=== PATIENT | male | born 1975 | race Caucasian/White ===

== ENCOUNTER 2017-10-23 14:05 | Emergency (ER) | payer BC, OTHER ==
[~2017-10-23] VITALS: Ht 177.8 cm; Wt 95.3 kg
[~2017-10-23 14:05] MED LIST: LANS30CA63 PO; TAM04C PO; ZOLP10TA6 PO
[2017-10-23] MEDS ORDERED: ONDANSETRON HCL 4 MG/2 ML VIAL IV ONE ×2 (17:30→21:30)
[2017-10-23] MEDS ORDERED: SODIUM CHLORIDE 0.9% 1,000 ML IV ONE (17:30)
[2017-10-23] MEDS ORDERED: SODIUM CHLORIDE 0.9% 500 ML IV ONE (17:30)
[2017-10-23] MEDS ORDERED: MORPHINE SULF INJ 2 MG/ML SYRINGE 1ML IV ONE ×2 (17:30→19:00)
[2017-10-23] MEDS ORDERED: TETANUS-DIPTH-ACEL PERTUSSIS 0.5ML SYRG IM ONE (17:30)
[2017-10-23] MEDS ORDERED: HYDROmorphone HCL 2 MG/ML VL IV ONE (21:30)
[2017-10-23] MEDS ORDERED: HYDROmorphone HCL 2 MG/ML VL IV PRN (23:45)
[2017-10-24 01:11] VITALS: BP 128/73
[2017-10-24] MEDS ORDERED: HYDROmorphone HCL 2 MG/ML VL IV ONE (01:30)
== END 2017-10-24 01:35 | disposition short-term general hospital (02) ==
LOC: ER 14:05
DX: S42.112A Displaced fracture of body of scapula, left shoulder, initial encounter for closed fracture (principal); S42.002A Fracture of unspecified part of left clavicle, initial encounter for closed fracture; S22.42XA Multiple fractures of ribs, left side, initial encounter for closed fracture; K21.9 Gastro-esophageal reflux disease without esophagitis; E78.5 Hyperlipidemia, unspecified; Z82.49 Family history of ischemic heart disease and other diseases of the circulatory system; Z23 Encounter for immunization; Z87.442 Personal history of urinary calculi; W01.0XXA Fall on same level from slipping, tripping and stumbling without subsequent striking against object, initial encounter; Y93.55 Activity, bike riding; Y92.89 Other specified places as the place of occurrence of the external cause; Y99.8 Other external cause status
CPT/HCPCS: 71101; 71250; 73020; 73200; 90471; 90715; 93005; 96361; 96374; 96375; 96376; 99291; J1170; J2270; J2405; J7030

== ENCOUNTER 2019-12-02 23:50 | Inpatient (IN) | payer BC ==
[~2019-12-02] VITALS: Ht 177.8 cm; Wt 94.0 kg
[~2019-12-02 23:50] MED LIST changes: +LANS30CA57 PO; -LANS30CA63 PO
[2019-12-03 01:20] LABS: Basophils # (auto) 0.1 uL; Basophils % (auto) 0.5 % (0.0-2.0); Eosinophils # (auto) 0.1 uL; Eosinophils % (auto) 0.8 % (0.0-7.0); Hematocrit 50.1 % (41.0-53.0); Hemoglobin 16.7 g/dL (13.5-17.5); Lymphocytes # (auto) 1.1 uL; Lymphocytes % (auto) 6.6 % (10.0-50.0); Mean Corpuscular Hgb Conc. 33.4 g/dL (32.0-36.0); Mean Corpuscular Volume 80.8 fL (80.0-100.0); Monocytes # (auto) 0.9 uL; Monocytes % (auto) 5.5 % (0.0-12.0); Neutrophils # (auto) 14.1 uL; Neutrophils % (auto) 86.6 % (37.0-80.0); Platelet Count (auto) 310 10^3/uL (140-450); Red Cell Distribution Width 14.7 % (11.8-14.3); White Blood Cell 16.3 10^3/uL (4.4-10.8)
[2019-12-03 01:21] LABS: Urine Bacteria NONE SEEN /hpf (None Seen); Urine Blood Negative /uL (Negative); Urine Mucus MODERATE (None Seen); Urine Specific Gravity 1.031 (1.001-1.035); Urine WBC 1 /hpf (0 - 3)
[2019-12-03 01:38] LABS: INR 1.05 (0.9-1.15); Partial Thromboplastin Time 24.2 sec (23.64-32.05)
[2019-12-03 01:40] LABS: Calcium 8.9 mg/dL (8.5-10.1); Magnesium 2.2 mg/dL (1.6-2.6); Potassium 4.2 mmol/L (3.5-5.1)
[2019-12-03 01:42] LABS: BUN/Creatinine Ratio 11.4
[2019-12-03 01:45] LABS: Bilirubin, Total 0.5 mg/dL (0.2-1.0); Total Protein 7.8 g/dL (6.4-8.2)
[2019-12-03] MEDS ORDERED: MORPHINE SULFATE 4 MG/ML SYR/VIAL IV ONE (02:15)
[2019-12-03] MEDS ORDERED: SODIUM CHLORIDE 0.9% 1,000 ML IV ONE (02:15)
[2019-12-03] MEDS ORDERED: ONDANSETRON HCL 4 MG/2 ML VIAL IV ONE (02:15)
[2019-12-03] MEDS ORDERED: metroNIDAZOLE 500MG/100ML 100 ML IV ONE (02:15)
[2019-12-03] MEDS ORDERED: ACETAMINOPHEN 325 MG TAB PO PRN (03:15)
[2019-12-03] MEDS ORDERED: ONDANSETRON HCL 4 MG/2 ML VIAL IV PRN (03:15)
[2019-12-03] MEDS: HYDROcodone-ACET 5/325MG TAB PO PRN ×3 (04:13→13:05)
[2019-12-03 04:34] VITALS: BP 137/94
[2019-12-03 05:29] VITALS: BP 137/94
[2019-12-03] MEDS: SODIUM CHLORIDE 0.9% 1,000 ML IV SCH ×3 (05:57→23:56)
[2019-12-03] MEDS: MORPHINE SULFATE 4 MG/ML SYR/VIAL IV PRN ×2 (05:58→09:39)
[2019-12-03] MEDS: metroNIDAZOLE 500MG/100ML 100 ML IV SCH ×4 (05:58→23:57)
[2019-12-03] MEDS ORDERED: DEXL30CA4 PO (06:34)
[2019-12-03] MEDS ORDERED: ESCI5TAB PO (06:34)
[2019-12-03 07:22] LABS: Eosinophils # (auto) 0.1 uL; Lymphocytes # (auto) 1.1 uL; Neutrophils # (auto) 10.9 uL; White Blood Cell 13.2 10^3/uL (4.4-10.8)
[2019-12-03 07:24] LABS: Basophils # (auto) 0.1 uL; Basophils % (auto) 0.4 % (0.0-2.0); Hematocrit 47.2 % (41.0-53.0); Hemoglobin 15.4 g/dL (13.5-17.5); Lymphocytes % (auto) 8.4 % (10.0-50.0); Mean Corpuscular Hemoglobin 26.5 pg (28.0-32.0); Mean Corpuscular Hgb Conc. 32.6 g/dL (32.0-36.0); Mean Corpuscular Volume 81.2 fL (80.0-100.0); Monocytes % (auto) 7.9 % (0.0-12.0); Neutrophils % (auto) 82.3 % (37.0-80.0); Platelet Count (auto) 258 10^3/uL (140-450); Red Blood Cells 5.81 10^6/uL (4.5-5.90); Red Cell Distribution Width 14.6 % (11.8-14.3)
[2019-12-03 07:44] LABS: Potassium 3.9 mmol/L (3.5-5.1)
[2019-12-03 07:47] LABS: BUN/Creatinine Ratio 13.7
[2019-12-03 09:00] VITALS: BP 145/81
[2019-12-03 13:00] VITALS: BP 156/76
[2019-12-03] MEDS: HYDROmorphone HCL 2 MG/ML VL IV PRN ×3 (14:29→23:56)
[2019-12-03] MEDS ORDERED: GOLYTELY 4L KIT PO ONE (16:00)
[2019-12-03 17:00] VITALS: BP 149/78
[2019-12-03] MEDS ORDERED: hydrALAZINE HCL 25 MG TAB PO PRN (22:15)
[2019-12-03 23:00] VITALS: BP 151/91
[2019-12-04 00:29] VITALS: BP 163/78
[2019-12-04] MEDS: HYDROmorphone HCL 2 MG/ML VL IV PRN ×4 (04:29→22:05)
[2019-12-04] MEDS: metroNIDAZOLE 500MG/100ML 100 ML IV SCH ×3 (05:47→18:17)
[2019-12-04 05:59] LABS: Eosinophils # (auto) 0.4 uL; Hemoglobin 14.8 g/dL (13.5-17.5); Lymphocytes # (auto) 1.3 uL; Mean Corpuscular Volume 81.1 fL (80.0-100.0); Neutrophils % (auto) 78.6 % (37.0-80.0); Nucleated Red Blood Cells % 0.1 %; Red Cell Distribution Width 14.7 % (11.8-14.3)
[2019-12-04 06:02] LABS: Basophils # (auto) 0.1 uL; Basophils % (auto) 0.4 % (0.0-2.0); Eosinophils % (auto) 3.3 % (0.0-7.0); Hematocrit 44.6 % (41.0-53.0); Lymphocytes % (auto) 9.9 % (10.0-50.0); Mean Corpuscular Hemoglobin 26.9 pg (28.0-32.0); Mean Corpuscular Hgb Conc. 33.1 g/dL (32.0-36.0); Monocytes % (auto) 7.8 % (0.0-12.0); Platelet Count (auto) 252 10^3/uL (140-450); White Blood Cell 12.7 10^3/uL (4.4-10.8)
[2019-12-04 06:27] LABS: Potassium 3.9 mmol/L (3.5-5.1)
[2019-12-04 06:32] LABS: Albumin 3.4 g/dL (3.4-5.0); BUN/Creatinine Ratio 6.7; Calcium 7.9 mg/dL (8.5-10.1)
[2019-12-04 06:35] LABS: Bilirubin, Total 0.5 mg/dL (0.2-1.0); Total Protein 6.8 g/dL (6.4-8.2)
[2019-12-04] MEDS: HYDROcodone-ACET 5/325MG TAB PO PRN (06:51)
[2019-12-04] MEDS ORDERED: SODIUM CHLORIDE LOCK 10 ML ONE (08:38)
[2019-12-04] MEDS ORDERED: diphenhdrAMINE HCL 50 MG/1 ML VL ONE (08:39)
[2019-12-04 08:40] VITALS: BP 151/95
[2019-12-04] MEDS: SODIUM CHLORIDE 0.9% 1,000 ML IV SCH ×2 (09:15→20:50)
[2019-12-04 12:47] VITALS: BP 132/74
[2019-12-04] MEDS: MIDAZOLAM HCL 5 MG/ML-1ML VIAL ONE ×2 (13:54→13:58)
[2019-12-04] MEDS: fentaNYL CITRATE 100 MCG/2 ML VL ONE ×2 (13:54→13:58)
[2019-12-04] MEDS ORDERED: fentaNYL CITRATE 100 MCG/2 ML VL ONE (14:00)
[2019-12-04] MEDS ORDERED: MIDAZOLAM HCL 5 MG/ML-1ML VIAL ONE (14:01)
[2019-12-04 17:16] VITALS: BP 159/79
[2019-12-05 00:09] VITALS: BP 134/64
[2019-12-05] MEDS ORDERED: TEMAZEPAM 15 MG CAP PO ONE (00:30)
[2019-12-05] MEDS: metroNIDAZOLE 500MG/100ML 100 ML IV SCH ×4 (00:34→17:37)
[2019-12-05] MEDS: HYDROmorphone HCL 2 MG/ML VL IV PRN ×5 (05:03→23:06)
[2019-12-05] MEDS: SODIUM CHLORIDE 0.9% 1,000 ML IV SCH ×2 (05:03→13:36)
[2019-12-05 05:45] VITALS: BP 113/64
[2019-12-05 06:13] LABS: Eosinophils # (auto) 0.6 uL; Mean Corpuscular Volume 81.3 fL (80.0-100.0)
[2019-12-05 06:16] LABS: Basophils # (auto) 0 uL; Basophils % (auto) 0.3 % (0.0-2.0); Eosinophils % (auto) 5.1 % (0.0-7.0); Hematocrit 45.2 % (41.0-53.0); Hemoglobin 14.8 g/dL (13.5-17.5); Lymphocytes % (auto) 8.6 % (10.0-50.0); Mean Corpuscular Hemoglobin 26.6 pg (28.0-32.0); Mean Corpuscular Hgb Conc. 32.7 g/dL (32.0-36.0); Monocytes # (auto) 0.9 uL; Monocytes % (auto) 7.5 % (0.0-12.0); Neutrophils # (auto) 9.3 uL; Neutrophils % (auto) 78.5 % (37.0-80.0); Nucleated Red Blood Cells % 0.1 %; Platelet Count (auto) 248 10^3/uL (140-450); Red Blood Cells 5.55 10^6/uL (4.5-5.90); Red Cell Distribution Width 14.8 % (11.8-14.3); White Blood Cell 11.8 10^3/uL (4.4-10.8)
[2019-12-05 06:37] LABS: BUN/Creatinine Ratio 4.4; Calcium 8.2 mg/dL (8.5-10.1)
[2019-12-05 09:00] VITALS: BP 121/57
[2019-12-05 13:00] VITALS: BP 133/80
[2019-12-05 17:00] VITALS: BP 130/77
[2019-12-05 21:52] VITALS: BP 131/85
[2019-12-06] MEDS: metroNIDAZOLE 500MG/100ML 100 ML IV SCH ×4 (00:34→17:36)
[2019-12-06] MEDS: SODIUM CHLORIDE 0.9% 1,000 ML IV SCH ×3 (02:43→23:00)
[2019-12-06] MEDS: HYDROmorphone HCL 2 MG/ML VL IV PRN ×4 (03:05→21:22)
[2019-12-06 05:00] VITALS: BP 120/72
[2019-12-06 05:58] LABS: Basophils # (auto) 0.1 uL; Eosinophils # (auto) 0.8 uL; Eosinophils % (auto) 9.4 % (0.0-7.0); Hematocrit 43.4 % (41.0-53.0); Hemoglobin 14.5 g/dL (13.5-17.5); Lymphocytes # (auto) 1.6 uL; Lymphocytes % (auto) 17.7 % (10.0-50.0); Mean Corpuscular Hemoglobin 27.3 pg (28.0-32.0); Mean Corpuscular Hgb Conc. 33.4 g/dL (32.0-36.0); Mean Corpuscular Volume 81.7 fL (80.0-100.0); Monocytes # (auto) 0.8 uL; Monocytes % (auto) 9.2 % (0.0-12.0); Neutrophils # (auto) 5.6 uL; Neutrophils % (auto) 62.7 % (37.0-80.0); Platelet Count (auto) 250 10^3/uL (140-450); Red Blood Cells 5.31 10^6/uL (4.5-5.90); Red Cell Distribution Width 14.5 % (11.8-14.3)
[2019-12-06 06:22] LABS: Calcium 7.8 mg/dL (8.5-10.1)
[2019-12-06 06:24] LABS: BUN/Creatinine Ratio 5.3
[2019-12-06 09:00] VITALS: BP 126/79
[2019-12-06] MEDS ORDERED: fentaNYL CITRATE 100 MCG/2 ML VL ONE (09:10)
[2019-12-06] MEDS ORDERED: MIDAZOLAM HCL 1MG/1ML-2 ML VIAL ONE (09:11)
[2019-12-06] MEDS ORDERED: PROPOFOL 10 MG/ML 20 ML IV ONE (09:34)
[2019-12-06] MEDS ORDERED: fentaNYL CITRATE 100 MCG/2 ML VL IV PRN (09:45)
[2019-12-06] MEDS ORDERED: ONDANSETRON HCL 4 MG/2 ML VIAL IV PRN (09:45)
[2019-12-06] MEDS ORDERED: hydrALAZINE HCL 20 MG/ML VL IV PRN (09:45)
[2019-12-06] MEDS ORDERED: ePHEDrine SULFATE 50 MG/ML AMP IV PRN (09:45)
[2019-12-06 13:00] VITALS: BP 148/99
[2019-12-06 13:44] LABS: INR 1.12 (0.9-1.15)
[2019-12-06] MEDS: HYDROcodone-ACET 5/325MG TAB PO PRN (16:05)
[2019-12-06 17:00] VITALS: BP 127/67
[2019-12-06] MEDS ORDERED: TEMAZEPAM 15 MG CAP PO ONE (21:15)
[2019-12-06 21:42] VITALS: BP 138/83
[2019-12-07] MEDS: metroNIDAZOLE 500MG/100ML 100 ML IV SCH ×5 (00:15→23:21)
[2019-12-07] MEDS: HYDROmorphone HCL 2 MG/ML VL IV PRN ×2 (01:18→23:21)
[2019-12-07 04:57] VITALS: BP 150/86
[2019-12-07 06:14] LABS: Calcium 7.9 mg/dL (8.5-10.1); Potassium 3.5 mmol/L (3.5-5.1)
[2019-12-07 06:17] LABS: BUN/Creatinine Ratio 9.2
[2019-12-07 06:25] LABS: Eosinophils # (auto) 0.6 uL; Hemoglobin 14.8 g/dL (13.5-17.5); Lymphocytes # (auto) 1.5 uL; Monocytes # (auto) 0.7 uL
[2019-12-07 06:26] LABS: Basophils # (auto) 0.1 uL; Basophils % (auto) 0.9 % (0.0-2.0); Eosinophils % (auto) 8.7 % (0.0-7.0); Hematocrit 44.5 % (41.0-53.0); Lymphocytes % (auto) 20.8 % (10.0-50.0); Mean Corpuscular Hemoglobin 26.9 pg (28.0-32.0); Mean Corpuscular Hgb Conc. 33.2 g/dL (32.0-36.0); Monocytes % (auto) 9.6 % (0.0-12.0); Neutrophils # (auto) 4.3 uL; Nucleated Red Blood Cells % 0.1 %; Platelet Count (auto) 287 10^3/uL (140-450); Red Cell Distribution Width 14.6 % (11.8-14.3); White Blood Cell 7.2 10^3/uL (4.4-10.8)
[2019-12-07] MEDS: SODIUM CHLORIDE 0.9% 1,000 ML IV SCH ×2 (06:27→17:15)
[2019-12-07 09:00] VITALS: BP 125/77
[2019-12-07] MEDS: HYDROcodone-ACET 5/325MG TAB PO PRN ×3 (10:20→18:28)
[2019-12-07 13:00] VITALS: BP 145/84
[2019-12-07 17:00] VITALS: BP 148/78
[2019-12-07 22:00] VITALS: BP 150/83
[2019-12-08] MEDS: SODIUM CHLORIDE 0.9% 1,000 ML IV SCH (03:32)
[2019-12-08] MEDS: HYDROcodone-ACET 5/325MG TAB PO PRN ×3 (04:27→13:35)
[2019-12-08 05:00] VITALS: BP 141/83
[2019-12-08] MEDS: metroNIDAZOLE 500MG/100ML 100 ML IV SCH ×2 (05:47→11:31)
[2019-12-08 06:23] LABS: Basophils # (auto) 0.1 uL; Basophils % (auto) 0.8 % (0.0-2.0); Eosinophils # (auto) 0.4 uL; Eosinophils % (auto) 5.4 % (0.0-7.0); Hematocrit 45.7 % (41.0-53.0); Hemoglobin 15.2 g/dL (13.5-17.5); Lymphocytes # (auto) 1.6 uL; Lymphocytes % (auto) 20.7 % (10.0-50.0); Mean Corpuscular Hemoglobin 27.3 pg (28.0-32.0); Mean Corpuscular Hgb Conc. 33.3 g/dL (32.0-36.0); Mean Corpuscular Volume 81.7 fL (80.0-100.0); Monocytes # (auto) 0.7 uL; Monocytes % (auto) 8.8 % (0.0-12.0); Neutrophils % (auto) 64.3 % (37.0-80.0); Nucleated Red Blood Cells % 0.1 %; Platelet Count (auto) 276 10^3/uL (140-450); Red Blood Cells 5.59 10^6/uL (4.5-5.90); Red Cell Distribution Width 14.7 % (11.8-14.3); White Blood Cell 7.8 10^3/uL (4.4-10.8)
[2019-12-08 06:37] LABS: Calcium 8.2 mg/dL (8.5-10.1); Potassium 3.8 mmol/L (3.5-5.1)
[2019-12-08 06:39] LABS: BUN/Creatinine Ratio 8.3
[2019-12-08 09:28] VITALS: BP 127/71
[2019-12-08 12:41] VITALS: BP 123/73
[2019-12-08] MEDS ORDERED: PANT40TA2 PO (14:14)
[2019-12-08] MEDS ORDERED: ESCI5TAB PO (14:14)
[2019-12-08] MEDS ORDERED: MET500T PO (14:14)
[2019-12-08] MEDS ORDERED: CIP500T PO (14:14)
[2019-12-08] MEDS ORDERED: ATOR20TA50 PO (14:14)
[2019-12-08 16:53] VITALS: BP 111/75
[2019-12-08 16:58] VITALS: BP 123/73
[2019-12-08] MEDS ORDERED: CALCTAB25 PO (17:05)
[2019-12-08] MEDS ORDERED: metroNIDAZOLE 500MG/100ML 100 ML IV SCH (22:00)
== END 2019-12-08 18:09 | disposition home or self-care (01) | DRG 393 ==
LOC: ER 23:55 → OVERFLOW 23:56 → WEST WING 12-03 04:23 → UNDODISIN 12-08 14:30
PROVIDERS: ADMIT Hospitalist; ATTEND Internal Medicine
PROC: 0DBE8ZX Excision of Large Intestine, Via Natural or Artificial Opening Endoscopic, Diagnostic (ICD-10-PCS; principal; 2019-12-04 13:51)
DX: K55.9 Vascular disorder of intestine, unspecified (principal); N17.0 Acute kidney failure with tubular necrosis; E87.1 Hypo-osmolality and hyponatremia; R65.10 Systemic inflammatory response syndrome (SIRS) of non-infectious origin without acute organ dysfunction; K21.9 Gastro-esophageal reflux disease without esophagitis; N18.9 Chronic kidney disease, unspecified; K63.9 Disease of intestine, unspecified; E83.51 Hypocalcemia; E78.5 Hyperlipidemia, unspecified; Z87.442 Personal history of urinary calculi; Z79.899 Other long term (current) drug therapy; Z82.49 Family history of ischemic heart disease and other diseases of the circulatory system; Z80.0 Family history of malignant neoplasm of digestive organs
CPT/HCPCS: 36415; 74176; 76705; 80048; 80053; 80061; 81001; 82150; 82270; 83036; 83690; 83735; 85025; 85610; 85730; G0378; J2250; J2405; J2704; J3490

== ENCOUNTER 2021-06-02 15:00 | Inpatient (IN) | payer BC ==
[~2021-06-02] VITALS: Ht 177.8 cm; Wt 133.8 kg
[2021-06-02] MEDS: SODIUM ZIRCONIUM CYCL 10 GM PAK PO SCH ×3 (06:00→22:00)
[~2021-06-02 15:00] MED LIST changes: +ATOR20TA50 PO; +CALCTAB25 PO; +CIP500T PO; +ESCI5TAB PO; -LANS30CA57 PO; +MET500T PO; +PANT40TA2 PO; -TAM04C PO; -ZOLP10TA6 PO
[2021-06-02] MEDS ORDERED: SODIUM CHLORIDE 0.9% 1,000 ML IV ONE ×2 (15:15)
[2021-06-02 16:06] LABS: Basophils # (auto) 0.1 10 ^3/uL (0-0.2); Basophils % (auto) 0.5 % (0.0-2.0); Eosinophils # (auto) 0 10 ^3/uL (0-0.8); Hemoglobin 12.8 g/dL (13.5-17.5); Lymphocytes # (auto) 0.6 10 ^3/uL (0.4-5.4); Lymphocytes % (auto) 3.1 % (10.0-50.0); Mean Corpuscular Hemoglobin 23.6 pg (28.0-32.0); Mean Corpuscular Hgb Conc. 29.7 g/dL (32.0-36.0); Mean Corpuscular Volume 79.4 fL (80.0-100.0); Monocytes # (auto) 1.5 10 ^3/uL (0-1.3); Monocytes % (auto) 7.9 % (0.0-12.0); Neutrophils # (auto) 16.4 10 ^3/uL (1.6-8.6); Neutrophils % (auto) 88.5 % (37.0-80.0); Nucleated Red Blood Cells % 0.2 %; Red Blood Cells 5.41 10^6/uL (4.5-5.90); White Blood Cell 18.6 10^3/uL (4.4-10.8)
[2021-06-02] MEDS ORDERED: IOHEXOL 350 MG/ML 100ML IJ ONE (16:14)
[2021-06-02] MEDS ORDERED: cefTRIAXone 1GM/50ML D5W 50 ML IV ONE (16:30)
[2021-06-02 16:33] LABS: Albumin 3.5 g/dL (3.4-5.0); Calcium 7.4 mg/dL (8.5-10.1)
[2021-06-02 16:50] LABS: BUN/Creatinine Ratio 5.5; Bilirubin, Total 0.5 mg/dL (0.2-1.0); Total Protein 6.9 g/dL (6.4-8.2)
[2021-06-02] MEDS ORDERED: ALBUTEROL SULF 2.5 MG/0.5ML(0.5%) NEB SOLN NEB ONE ×4 (17:00→23:15)
[2021-06-02] MEDS ORDERED: FUROSEMIDE 20 MG/2 ML VIAL IV ONE ×2 (17:00→20:15)
[2021-06-02] MEDS ORDERED: CALCIUM GLUC 1,000mg/50ml-NS 50 ML IV ONE ×4 (17:00→22:00)
[2021-06-02] MEDS ORDERED: DEXTROSE (50%) 50ML SYRG IV ONE ×3 (17:00→20:45)
[2021-06-02] MEDS ORDERED: SODIUM BICARBONATE 8.4% INJ 50ML SYRINGE IV ONE ×2 (17:00→20:45)
[2021-06-02] MEDS ORDERED: InsuLIN REG 1unit/0.01ml Soln (100units/ml) IV ONE ×3 (17:00→20:45)
[2021-06-02] MEDS ORDERED: SODIUM ZIRCONIUM CYCL 10 GM PAK PO ONE ×3 (17:00→20:45)
[2021-06-02] MEDS ORDERED: SODIUM BICARBONATE 50ML VIAL 150 ML in D5W 5% 1,000 ML IV ONE (17:30)
[2021-06-02] MEDS ORDERED: SODIUM BICARBONATE 8.4 % INJ 50ML VIAL IV ONE ×2 (17:30→18:00)
[2021-06-02] MEDS ORDERED: SODIUM BICARBONATE 8.4% INJ 50ML SYRINGE ONE (17:52)
[2021-06-02] MEDS ORDERED: ENOXAPARIN SOD 100 MG/1 ML SYRINGE SC ONE (18:00)
[2021-06-02] MEDS ORDERED: SODIUM BICARBONATE 50ML VIAL 50 ML in SOD CHL 0.45% 1,000 ML IV ONE (18:00)
[2021-06-02] MEDS ORDERED: FUROSEMIDE 40 MG/4 ML VIAL IV ONE ×3 (18:15→23:30)
[2021-06-02] MEDS ORDERED: CALCIUM CHL 100MG/ML 1,000 MG in D5W 5% 100 ML IV ONE ×3 (18:15→22:15)
[2021-06-02] MEDS ORDERED: SODIUM CHLORIDE 0.9% 2,000 ML IV ONE ×2 (18:15→19:15)
[2021-06-02 18:30] LABS: Urine Bacteria FEW /hpf (None Seen); Urine Blood Negative /uL (Negative); Urine Hyaline Cast MOD /lpf (0 - 2); Urine Mucus FEW (None Seen); Urine Specific Gravity 1.035 (1.001-1.035); Urine WBC 12 /hpf (0 - 3)
[2021-06-02] MEDS ORDERED: NITROGLYCERIN 0.4 MG SL TAB SL PRN ×2 (18:30→20:00)
[2021-06-02] MEDS ORDERED: MORPHINE SULFATE INJECTION 2 MG/ML SYRG IV PRN ×2 (18:30→20:00)
[2021-06-02] MEDS ORDERED: ATOR20TA50 PO (18:54)
[2021-06-02] MEDS ORDERED: DEXL60CA4 PO (18:54)
[2021-06-02] MEDS ORDERED: ZOLP10TA6 PO ×2 (18:54)
[2021-06-02] MEDS ORDERED: ESCI-28 PO ×2 (18:54→18:56)
[2021-06-02] MEDS ORDERED: SODIUM CHLORIDE 0.9% 1,000 ML IV SCH ×2 (19:15→20:00)
[2021-06-02] MEDS ORDERED: CEFEPIME 1 GM in SODIUM CHL 0.9% 50 ML IV ONE (19:45)
[2021-06-02] MEDS ORDERED: HYDROcodone-ACET 5/325MG TAB PO PRN (20:00)
[2021-06-02] MEDS ORDERED: DOCUSATE SOD 100 MG CAP PO PRN (20:00)
[2021-06-02] MEDS ORDERED: MORPHINE SULFATE 4 MG/ML SYR/VIAL IV PRN (20:00)
[2021-06-02] MEDS: LACTATED RINGER'S 1,000 ML IV ONE (20:00)
[2021-06-02] MEDS ORDERED: ALUM & MAG HYDROX-SIMETH LIQ(MAALOX) 30 ML PO ONE (20:00)
[2021-06-02] MEDS ORDERED: LORazepam 2MG/ML-1ML VIAL IV PRN (20:00)
[2021-06-02] MEDS ORDERED: PANTOPRAZOLE 40 MG/10 ML VIAL INJ IV ONE (20:00)
[2021-06-02 20:12] LABS: BUN/Creatinine Ratio 6.1
[2021-06-02] MEDS ORDERED: MAGNESIUM SULFATE 1GM/100ML 100 ML IV ONE (20:15)
[2021-06-02 20:20] LABS: Magnesium 2.2 mg/dL (1.6-2.6); Phosphorus 8.2 mg/dL (2.5-4.90)
[2021-06-02 20:22] LABS: Potassium 6.3 mmol/L (3.5-5.1)
[2021-06-02 20:30] LABS: Free T4 (Free Thyroxine) 0.81 ng/dL (0.89-1.76)
[2021-06-02 20:31] LABS: Free T3 2.77 pg/mL (2.3-4.2)
[2021-06-02] MEDS ORDERED: CALCIUM ACETATE 667 MG CAP PO ONE (20:45)
[2021-06-02] MEDS ORDERED: SEVELAMER 800 MG TAB PO ONE (20:45)
[2021-06-02] MEDS ORDERED: FERROUS SULFATE 325mg EC TAB PO ONE (21:00)
[2021-06-02] MEDS ORDERED: CHOLECALCIFEROL (VITD3) 2,000 UNIT CAP/TAB PO ONE (21:00)
[2021-06-02] MEDS ORDERED: DEXTROSE (50%) 50ML SYRG IV PRN (21:00)
[2021-06-02] MEDS ORDERED: SODIUM ZIRCONIUM CYCL 10 GM PAK PO SCH ×2 (22:00)
[2021-06-02] MEDS: CEFEPIME 1 GM in SODIUM CHL 0.9% 50 ML IV SCH (22:00)
[2021-06-02 22:41] LABS: INR 1.64 (0.9-1.15); Partial Thromboplastin Time 24.9 sec (23.6-33.0); Potassium 6.3 mmol/L (3.5-5.1)
[2021-06-02] MEDS ORDERED: metroNIDAZOLE 500MG/100ML 100 ML IV ONE (23:15)
[2021-06-02] MEDS: SODIUM CHLORIDE 0.9% 1,000 ML IV SCH (23:30)
[2021-06-02 23:43] LABS: Sodium Urine 36 mmol/L (40-220)
[2021-06-02 23:53] LABS: Amphetamine Screen, Urine NEGATIVE (NEGATIVE); Barbiturate Scree,Urine NEGATIVE (NEGATIVE); Benzodiazephine Screen, Urine NEGATIVE (NEGATIVE); Cannabinoid Screen, Urine NEGATIVE (NEGATIVE); Cocaine Screen, Urine NEGATIVE (NEGATIVE); Opiate Scree,Urine POSITIVE (NEGATIVE); Phencyclidine Screen, Urine NEGATIVE (NEGATIVE)
[2021-06-03 02:09] LABS: Eosinophils # (auto) 0 10 ^3/uL (0-0.8); Lymphocytes # (auto) 0.3 10 ^3/uL (0.4-5.4); Monocytes # (auto) 0.7 10 ^3/uL (0-1.3); Red Cell Distribution Width 16.6 % (11.8-14.3)
[2021-06-03 02:10] LABS: Basophils # (auto) 0 10 ^3/uL (0-0.2); Basophils % (auto) 0.2 % (0.0-2.0); Eosinophils % (auto) 0.2 % (0.0-7.0); Hematocrit 36.3 % (41.0-53.0); Hemoglobin 11.3 g/dL (13.5-17.5); Lymphocytes % (auto) 2.2 % (10.0-50.0); Mean Corpuscular Volume 77.4 fL (80.0-100.0); Monocytes % (auto) 5.3 % (0.0-12.0); Neutrophils # (auto) 12.8 10 ^3/uL (1.6-8.6); Neutrophils % (auto) 92.1 % (37.0-80.0); Nucleated Red Blood Cells % 0.4 %; Red Blood Cells 4.69 10^6/uL (4.5-5.90); White Blood Cell 13.9 10^3/uL (4.4-10.8)
[2021-06-03] MEDS: InsuLIN REG 1unit/0.01ml Soln (100units/ml) SC SCH ×4 (02:16→16:43)
[2021-06-03] MEDS: ACCU-CHEK COMFORT CURVE STRIP VI SCH ×4 (02:17→16:43)
[2021-06-03 02:38] LABS: BUN/Creatinine Ratio 7.5; Potassium 5.1 mmol/L (3.5-5.1)
[2021-06-03 02:39] LABS: Albumin 2.6 g/dL (3.4-5.0); Calcium 6.7 mg/dL (8.5-10.1); Magnesium 2.3 mg/dL (1.6-2.6)
[2021-06-03 02:48] LABS: Bilirubin, Total 0.5 mg/dL (0.2-1.0); Phosphorus 4.4 mg/dL (2.5-4.90); Total Protein 5.5 g/dL (6.4-8.2)
[2021-06-03] MEDS: metroNIDAZOLE 500MG/100ML 100 ML IV SCH ×3 (06:00→21:38)
[2021-06-03] MEDS: SODIUM ZIRCONIUM CYCL 10 GM PAK PO SCH ×2 (06:26→14:24)
[2021-06-03] MEDS: CEFEPIME 1 GM in SODIUM CHL 0.9% 50 ML IV SCH (06:28)
[2021-06-03] MEDS ORDERED: CALCIUM ACETATE 667 MG CAP PO SCH (08:00)
[2021-06-03] MEDS: SEVELAMER 800 MG TAB PO SCH ×3 (08:34→16:43)
[2021-06-03] MEDS: CALCIUM W/VIT D (600MG/400IU) TAB PO SCH ×2 (08:34→16:43)
[2021-06-03] MEDS: FERROUS SULFATE 325mg EC TAB PO SCH ×3 (08:34→16:43)
[2021-06-03] MEDS: SODIUM CHLORIDE 0.9% 1,000 ML IV SCH ×3 (09:59→21:00)
[2021-06-03] MEDS: PANTOPRAZOLE 40 MG/10 ML VIAL INJ IV SCH ×2 (10:00→21:38)
[2021-06-03] MEDS ORDERED: ENOXAPARIN SOD 40 MG/0.4 ML SYRINGE SC SCH (10:00)
[2021-06-03] MEDS: ASPirin 81 mg TAB PO SCH (10:00)
[2021-06-03] MEDS: CHOLECALCIFEROL (VITD3) 2,000 UNIT CAP/TAB PO SCH (10:00)
[2021-06-03 10:38] LABS: Basophils # (auto) 0 10 ^3/uL (0-0.2); Basophils % (auto) 0.1 % (0.0-2.0); Eosinophils # (auto) 0 10 ^3/uL (0-0.8); Lymphocytes # (auto) 0.4 10 ^3/uL (0.4-5.4); Mean Corpuscular Volume 75.5 fL (80.0-100.0); Monocytes # (auto) 0.6 10 ^3/uL (0-1.3); Nucleated Red Blood Cells % 0.2 %
[2021-06-03 10:41] LABS: Hematocrit 35.1 % (41.0-53.0); Hemoglobin 11.1 g/dL (13.5-17.5); Mean Corpuscular Hemoglobin 23.9 pg (28.0-32.0); Mean Corpuscular Hgb Conc. 31.6 g/dL (32.0-36.0); Monocytes % (auto) 4.5 % (0.0-12.0); Neutrophils # (auto) 11.4 10 ^3/uL (1.6-8.6); Neutrophils % (auto) 92.4 % (37.0-80.0); Red Blood Cells 4.65 10^6/uL (4.5-5.90); Red Cell Distribution Width 16.5 % (11.8-14.3); White Blood Cell 12.4 10^3/uL (4.4-10.8)
[2021-06-03 10:53] LABS: Calcium 7.7 mg/dL (8.5-10.1); Potassium 4.2 mmol/L (3.5-5.1)
[2021-06-03] MEDS: MORPHINE SULFATE INJECTION 2 MG/ML SYRG IV PRN ×3 (10:53→21:39)
[2021-06-03] MEDS: ONDANSETRON HCL 4 MG/2 ML VIAL IV PRN ×3 (10:53→21:39)
[2021-06-03 11:00] VITALS: BP 136/72
[2021-06-03 11:21] LABS: Albumin 2.8 g/dL (3.4-5.0); BUN/Creatinine Ratio 8.3; Bilirubin, Total 0.6 mg/dL (0.2-1.0); Total Protein 5.8 g/dL (6.4-8.2)
[2021-06-03 13:00] VITALS: BP 146/87
[2021-06-03 17:00] VITALS: BP 145/82
[2021-06-03 20:00] VITALS: BP 140/77
[2021-06-03 22:00] VITALS: BP 140/77
[2021-06-04] VITALS (7 sets, daily range): BP systolic 128–154; BP diastolic 80–95
[2021-06-04] MEDS: MORPHINE SULFATE INJECTION 2 MG/ML SYRG IV PRN ×3 (03:57→12:32)
[2021-06-04] MEDS: ONDANSETRON HCL 4 MG/2 ML VIAL IV PRN ×3 (03:57→12:32)
[2021-06-04] MEDS: InsuLIN REG 1unit/0.01ml Soln (100units/ml) SC SCH ×4 (06:00→18:00)
[2021-06-04] MEDS: ACCU-CHEK COMFORT CURVE STRIP VI SCH ×4 (06:09→18:19)
[2021-06-04] MEDS: metroNIDAZOLE 500MG/100ML 100 ML IV SCH ×3 (06:09→22:18)
[2021-06-04 06:47] LABS: INR 1.48 (0.9-1.15)
[2021-06-04 06:48] LABS: Basophils # (auto) 0 10 ^3/uL (0-0.2); Basophils % (auto) 0.4 % (0.0-2.0); Eosinophils # (auto) 0 10 ^3/uL (0-0.8); Hemoglobin 10.2 g/dL (13.5-17.5); Monocytes # (auto) 0.5 10 ^3/uL (0-1.3); Neutrophils # (auto) 8.5 10 ^3/uL (1.6-8.6); Nucleated Red Blood Cells % 0.1 %
[2021-06-04 06:50] LABS: Eosinophils % (auto) 0.1 % (0.0-7.0); Hematocrit 30.9 % (41.0-53.0); Lymphocytes # (auto) 0.5 10 ^3/uL (0.4-5.4); Lymphocytes % (auto) 4.8 % (10.0-50.0); Mean Corpuscular Hemoglobin 24.7 pg (28.0-32.0); Mean Corpuscular Hgb Conc. 33.1 g/dL (32.0-36.0); Mean Corpuscular Volume 74.6 fL (80.0-100.0); Monocytes % (auto) 4.9 % (0.0-12.0); Neutrophils % (auto) 89.8 % (37.0-80.0); Red Blood Cells 4.14 10^6/uL (4.5-5.90); Red Cell Distribution Width 15.9 % (11.8-14.3); White Blood Cell 9.5 10^3/uL (4.4-10.8)
[2021-06-04 07:15] LABS: Albumin 2.5 g/dL (3.4-5.0); Calcium 7.3 mg/dL (8.5-10.1); Potassium 4.1 mmol/L (3.5-5.1)
[2021-06-04 07:35] LABS: BUN/Creatinine Ratio 8.4; Bilirubin, Total 0.8 mg/dL (0.2-1.0); Total Protein 5.2 g/dL (6.4-8.2)
[2021-06-04] MEDS: FERROUS SULFATE 325mg EC TAB PO SCH ×3 (07:58→18:19)
[2021-06-04] MEDS: SEVELAMER 800 MG TAB PO SCH ×3 (07:58→18:31)
[2021-06-04] MEDS: CALCIUM W/VIT D (600MG/400IU) TAB PO SCH ×2 (07:58→18:19)
[2021-06-04] MEDS: CEFEPIME 2 GM in SODIUM CHL 0.9% 50 ML IV SCH (09:23)
[2021-06-04] MEDS: ASPirin 81 mg TAB PO SCH (09:24)
[2021-06-04] MEDS: CHOLECALCIFEROL (VITD3) 2,000 UNIT CAP/TAB PO SCH (09:24)
[2021-06-04] MEDS: FOLIC ACID 1 MG TAB PO SCH (09:24)
[2021-06-04] MEDS: THIAMINE HCL 100 MG TAB PO SCH (09:24)
[2021-06-04] MEDS: PANTOPRAZOLE 40 MG/10 ML VIAL INJ IV SCH ×2 (09:24→22:18)
[2021-06-04] MEDS: SODIUM CHLORIDE 0.9% 1,000 ML IV SCH ×2 (09:25→19:11)
[2021-06-04 09:26] LABS: Hepatitis B Surface Antibody Negative
[2021-06-04 09:55] LABS: Hepatitis A Total Antibody Positive
[2021-06-04 11:40] LABS: Urine Amorphous Crystal FEW /hpf (None Seen); Urine Bacteria FEW /hpf (None Seen); Urine Blood 2+ /uL (Negative); Urine Mucus FEW (None Seen); Urine Specific Gravity 1.011 (1.001-1.035); Urine WBC 5 /hpf (0 - 3)
[2021-06-04 11:43] LABS: Protein, Urine 75.5 mg/dL (0.0-11.9)
[2021-06-04 14:18] LABS: Hepatitis A Ab IgM Negative; Hepatitis B Core IgM Negative; Hepatitis B Surface Antigen Negative (Negative); Hepatitis C Antibody Negative (Negative)
[2021-06-04 15:11] LABS: Hepatitis B Core Total AB Negative; Hepatitis B Surface Antigen Negative (Negative); Hepatitis C Antibody Negative (Negative)
[2021-06-04] MEDS: HYDROmorphone HCL 2 MG/ML VL IV PRN ×2 (16:06→22:19)
[2021-06-04] MEDS: LACTULOSE 20Gm/30ML SOLN PO SCH (18:19)
[2021-06-04] MEDS: LORazepam 2MG/ML-1ML VIAL IV PRN (20:24)
[2021-06-05] MEDS: ACCU-CHEK COMFORT CURVE STRIP VI SCH ×5 (00:12→23:39)
[2021-06-05] MEDS: LACTULOSE 20Gm/30ML SOLN PO SCH ×5 (00:13→23:40)
[2021-06-05] MEDS: SODIUM CHLORIDE 0.9% 1,000 ML IV SCH ×4 (00:30→23:46)
[2021-06-05] MEDS: HYDROmorphone HCL 2 MG/ML VL IV PRN ×3 (04:21→20:51)
[2021-06-05 05:00] VITALS: BP 151/96
[2021-06-05] MEDS: metroNIDAZOLE 500MG/100ML 100 ML IV SCH ×3 (05:31→21:18)
[2021-06-05] MEDS: InsuLIN REG 1unit/0.01ml Soln (100units/ml) SC SCH ×6 (05:31→23:38)
[2021-06-05 06:27] LABS: Basophils # (auto) 0 10 ^3/uL (0-0.2); Lymphocytes # (auto) 0.6 10 ^3/uL (0.4-5.4); Neutrophils # (auto) 6.3 10 ^3/uL (1.6-8.6)
[2021-06-05 06:35] LABS: Basophils % (auto) 0.6 % (0.0-2.0); Eosinophils # (auto) 0.2 10 ^3/uL (0-0.8); Eosinophils % (auto) 2.2 % (0.0-7.0); Hematocrit 31.2 % (41.0-53.0); Hemoglobin 10.2 g/dL (13.5-17.5); Lymphocytes % (auto) 8.2 % (10.0-50.0); Mean Corpuscular Hemoglobin 24.4 pg (28.0-32.0); Mean Corpuscular Hgb Conc. 32.7 g/dL (32.0-36.0); Mean Corpuscular Volume 74.6 fL (80.0-100.0); Monocytes # (auto) 0.5 10 ^3/uL (0-1.3); Monocytes % (auto) 6.1 % (0.0-12.0); Neutrophils % (auto) 82.9 % (37.0-80.0); Nucleated Red Blood Cells % 0.1 %; Red Blood Cells 4.18 10^6/uL (4.5-5.90); Red Cell Distribution Width 16.3 % (11.8-14.3); White Blood Cell 7.6 10^3/uL (4.4-10.8)
[2021-06-05 07:24] LABS: Albumin 2.3 g/dL (3.4-5.0); Bilirubin, Total 0.8 mg/dL (0.2-1.0); Calcium 7.4 mg/dL (8.5-10.1); Total Protein 5.2 g/dL (6.4-8.2)
[2021-06-05 08:00] VITALS: BP 135/72
[2021-06-05] MEDS ORDERED: FUROSEMIDE 40 MG/4 ML VIAL IV ONE (08:15)
[2021-06-05 09:00] VITALS: BP 135/85
[2021-06-05] MEDS: FERROUS SULFATE 325mg EC TAB PO SCH ×3 (09:06→18:33)
[2021-06-05] MEDS: CALCIUM W/VIT D (600MG/400IU) TAB PO SCH ×2 (09:07→18:33)
[2021-06-05] MEDS: PANTOPRAZOLE 40 MG/10 ML VIAL INJ IV SCH ×2 (09:07→21:27)
[2021-06-05] MEDS: SEVELAMER 800 MG TAB PO SCH ×3 (09:07→18:33)
[2021-06-05] MEDS: ASPirin 81 mg TAB PO SCH (09:10)
[2021-06-05] MEDS: THIAMINE HCL 100 MG TAB PO SCH (09:10)
[2021-06-05] MEDS: CHOLECALCIFEROL (VITD3) 2,000 UNIT CAP/TAB PO SCH (09:10)
[2021-06-05] MEDS: FOLIC ACID 1 MG TAB PO SCH (09:10)
[2021-06-05] MEDS: CEFEPIME 2 GM in SODIUM CHL 0.9% 50 ML IV SCH (09:51)
[2021-06-05] MEDS: LORazepam 2MG/ML-1ML VIAL IV PRN (09:51)
[2021-06-05 13:00] VITALS: BP 129/97
[2021-06-05 16:52] VITALS: BP 140/88
[2021-06-05 22:00] VITALS: BP 134/77
[2021-06-06] MEDS: LORazepam 2MG/ML-1ML VIAL IV PRN ×4 (02:30→20:48)
[2021-06-06 03:30] VITALS: BP 134/77
[2021-06-06] MEDS: HYDROmorphone HCL 2 MG/ML VL IV PRN ×3 (04:10→18:25)
[2021-06-06 05:00] VITALS: BP 154/89
[2021-06-06] MEDS: metroNIDAZOLE 500MG/100ML 100 ML IV SCH ×3 (05:28→21:21)
[2021-06-06] MEDS: LACTULOSE 20Gm/30ML SOLN PO SCH (05:29)
[2021-06-06] MEDS: InsuLIN REG 1unit/0.01ml Soln (100units/ml) SC SCH ×4 (05:29→23:27)
[2021-06-06] MEDS: ACCU-CHEK COMFORT CURVE STRIP VI SCH ×4 (05:31→23:27)
[2021-06-06 05:53] LABS: Eosinophils # (auto) 0.3 10 ^3/uL (0-0.8); White Blood Cell 7.8 10^3/uL (4.4-10.8)
[2021-06-06 05:57] LABS: Basophils # (auto) 0.1 10 ^3/uL (0-0.2); Basophils % (auto) 0.6 % (0.0-2.0); Eosinophils % (auto) 4.1 % (0.0-7.0); Hematocrit 34.3 % (41.0-53.0); Hemoglobin 10.9 g/dL (13.5-17.5); Lymphocytes # (auto) 0.8 10 ^3/uL (0.4-5.4); Lymphocytes % (auto) 9.9 % (10.0-50.0); Mean Corpuscular Hemoglobin 23.7 pg (28.0-32.0); Mean Corpuscular Hgb Conc. 31.7 g/dL (32.0-36.0); Mean Corpuscular Volume 74.6 fL (80.0-100.0); Monocytes # (auto) 0.8 10 ^3/uL (0-1.3); Neutrophils # (auto) 5.9 10 ^3/uL (1.6-8.6); Neutrophils % (auto) 75.4 % (37.0-80.0); Nucleated Red Blood Cells % 0.1 %; Red Cell Distribution Width 16.5 % (11.8-14.3)
[2021-06-06 06:10] LABS: Albumin 2.3 g/dL (3.4-5.0); Calcium 7.7 mg/dL (8.5-10.1)
[2021-06-06 06:25] LABS: BUN/Creatinine Ratio 7.7; Bilirubin, Total 0.9 mg/dL (0.2-1.0); Total Protein 5.2 g/dL (6.4-8.2)
[2021-06-06] MEDS: FERROUS SULFATE 325mg EC TAB PO SCH ×3 (07:39→17:37)
[2021-06-06] MEDS: SEVELAMER 800 MG TAB PO SCH ×3 (07:40→17:37)
[2021-06-06] MEDS: SODIUM CHLORIDE 0.9% 1,000 ML IV SCH ×3 (08:26→21:20)
[2021-06-06] MEDS: CALCIUM W/VIT D (600MG/400IU) TAB PO SCH ×2 (08:26→17:33)
[2021-06-06 09:00] VITALS: BP 167/107
[2021-06-06] MEDS ORDERED: LOPERAMIDE HCL 2 MG CAP PO ONE (09:00)
[2021-06-06] MEDS: CEFEPIME 2 GM in SODIUM CHL 0.9% 50 ML IV SCH (09:42)
[2021-06-06] MEDS: PANTOPRAZOLE 40 MG/10 ML VIAL INJ IV SCH ×2 (09:42→21:21)
[2021-06-06] MEDS: THIAMINE HCL 100 MG TAB PO SCH (09:43)
[2021-06-06] MEDS: ASPirin 81 mg TAB PO SCH (09:43)
[2021-06-06] MEDS: FOLIC ACID 1 MG TAB PO SCH (09:43)
[2021-06-06] MEDS: CHOLECALCIFEROL (VITD3) 2,000 UNIT CAP/TAB PO SCH (09:43)
[2021-06-06 13:00] VITALS: BP 143/88
[2021-06-06 17:06] VITALS: BP 154/109
[2021-06-06 22:00] VITALS: BP 177/95
[2021-06-07] MEDS: HYDROmorphone HCL 2 MG/ML VL IV PRN ×4 (00:10→19:46)
[2021-06-07] MEDS: LORazepam 2MG/ML-1ML VIAL IV PRN ×3 (03:45→16:44)
[2021-06-07 05:00] VITALS: BP 166/93
[2021-06-07] MEDS: InsuLIN REG 1unit/0.01ml Soln (100units/ml) SC SCH ×3 (06:00→17:58)
[2021-06-07] MEDS: SODIUM CHLORIDE 0.9% 1,000 ML IV SCH ×3 (06:04→17:50)
[2021-06-07] MEDS: metroNIDAZOLE 500MG/100ML 100 ML IV SCH ×3 (06:04→22:00)
[2021-06-07] MEDS: ACCU-CHEK COMFORT CURVE STRIP VI SCH ×3 (06:04→17:58)
[2021-06-07 06:10] LABS: Basophils # (auto) 0 10 ^3/uL (0-0.2); Basophils % (auto) 0.6 % (0.0-2.0); Eosinophils # (auto) 0.4 10 ^3/uL (0-0.8); Eosinophils % (auto) 4.9 % (0.0-7.0); Hematocrit 37.2 % (41.0-53.0); Hemoglobin 11.7 g/dL (13.5-17.5); Lymphocytes # (auto) 0.8 10 ^3/uL (0.4-5.4); Mean Corpuscular Hemoglobin 23.7 pg (28.0-32.0); Mean Corpuscular Hgb Conc. 31.4 g/dL (32.0-36.0); Mean Corpuscular Volume 75.6 fL (80.0-100.0); Monocytes # (auto) 1.2 10 ^3/uL (0-1.3); Monocytes % (auto) 14.3 % (0.0-12.0); Neutrophils # (auto) 6.2 10 ^3/uL (1.6-8.6); Neutrophils % (auto) 71.2 % (37.0-80.0); Nucleated Red Blood Cells % 0.2 %; Red Blood Cells 4.92 10^6/uL (4.5-5.90); Red Cell Distribution Width 16.1 % (11.8-14.3); White Blood Cell 8.7 10^3/uL (4.4-10.8)
[2021-06-07 06:26] LABS: Albumin 2.2 g/dL (3.4-5.0)
[2021-06-07 06:36] LABS: BUN/Creatinine Ratio 8.6; Bilirubin, Total 0.6 mg/dL (0.2-1.0); Total Protein 5.1 g/dL (6.4-8.2)
[2021-06-07] MEDS: CALCIUM W/VIT D (600MG/400IU) TAB PO SCH ×2 (07:27→17:51)
[2021-06-07] MEDS: FERROUS SULFATE 325mg EC TAB PO SCH ×3 (07:27→17:51)
[2021-06-07] MEDS: SEVELAMER 800 MG TAB PO SCH ×3 (07:28→17:51)
[2021-06-07 08:55] VITALS: BP 159/85
[2021-06-07] MEDS: PANTOPRAZOLE 40 MG/10 ML VIAL INJ IV SCH ×2 (10:11→22:00)
[2021-06-07] MEDS: CEFEPIME 2 GM in SODIUM CHL 0.9% 50 ML IV SCH (10:11)
[2021-06-07] MEDS: ASPirin 81 mg TAB PO SCH (10:11)
[2021-06-07] MEDS: THIAMINE HCL 100 MG TAB PO SCH (10:12)
[2021-06-07] MEDS: CHOLECALCIFEROL (VITD3) 2,000 UNIT CAP/TAB PO SCH (10:12)
[2021-06-07] MEDS: LABETALOL HCL 200 MG TAB PO SCH ×2 (10:15→22:00)
[2021-06-07] MEDS: FOLIC ACID 1 MG, MULTIPLE VITAMIN 10 ML, MAGNESIUM SULF SDV 50% 8 MEQ, THIAMINE INJ 100... INJ SCH ×5 (12:48)
[2021-06-07] MEDS: LOPERAMIDE HCL 2 MG CAP PO PRN (13:34)
[2021-06-07 17:09] VITALS: BP 154/87
[2021-06-07] MEDS: ZOLPIDEM TARTRATE 5 MG TAB PO PRN (20:28)
[2021-06-07 22:00] VITALS: BP 143/88
[2021-06-08] MEDS: ACCU-CHEK COMFORT CURVE STRIP VI SCH ×4 (00:05→18:00)
[2021-06-08] MEDS: LORazepam 2MG/ML-1ML VIAL IV PRN ×4 (00:16→20:07)
[2021-06-08] MEDS: SODIUM CHLORIDE 0.9% 1,000 ML IV SCH ×4 (00:20→21:15)
[2021-06-08] MEDS: HYDROmorphone HCL 2 MG/ML VL IV PRN ×4 (02:06→23:40)
[2021-06-08 05:00] VITALS: BP 151/97
[2021-06-08 05:56] LABS: Basophils # (auto) 0 10 ^3/uL (0-0.2)
[2021-06-08] MEDS: InsuLIN REG 1unit/0.01ml Soln (100units/ml) SC SCH ×4 (06:00→18:00)
[2021-06-08 06:07] LABS: Potassium 3.9 mmol/L (3.5-5.1)
[2021-06-08 06:11] LABS: Basophils % (auto) 0.5 % (0.0-2.0); Eosinophils # (auto) 0.7 10 ^3/uL (0-0.8); Eosinophils % (auto) 7.2 % (0.0-7.0); Hematocrit 33.7 % (41.0-53.0); Hemoglobin 10.6 g/dL (13.5-17.5); Lymphocytes # (auto) 0.9 10 ^3/uL (0.4-5.4); Lymphocytes % (auto) 9.3 % (10.0-50.0); Mean Corpuscular Hemoglobin 24.6 pg (28.0-32.0); Mean Corpuscular Hgb Conc. 31.5 g/dL (32.0-36.0); Mean Corpuscular Volume 78.1 fL (80.0-100.0); Monocytes # (auto) 1.2 10 ^3/uL (0-1.3); Monocytes % (auto) 11.7 % (0.0-12.0); Neutrophils % (auto) 71.3 % (37.0-80.0); Nucleated Red Blood Cells % 0.1 %; Red Blood Cells 4.32 10^6/uL (4.5-5.90); Red Cell Distribution Width 16.6 % (11.8-14.3); White Blood Cell 9.9 10^3/uL (4.4-10.8)
[2021-06-08 06:18] LABS: Albumin 2.3 g/dL (3.4-5.0); BUN/Creatinine Ratio 9.5; Bilirubin, Total 0.5 mg/dL (0.2-1.0); Calcium 8.1 mg/dL (8.5-10.1); Total Protein 5.2 g/dL (6.4-8.2)
[2021-06-08] MEDS: metroNIDAZOLE 500MG/100ML 100 ML IV SCH ×3 (06:40→22:00)
[2021-06-08 09:00] VITALS: BP 163/101
[2021-06-08] MEDS: FERROUS SULFATE 325mg EC TAB PO SCH ×3 (09:00→18:00)
[2021-06-08] MEDS: CALCIUM W/VIT D (600MG/400IU) TAB PO SCH ×2 (09:00→18:00)
[2021-06-08] MEDS: SEVELAMER 800 MG TAB PO SCH ×3 (09:00→18:00)
[2021-06-08] MEDS: CEFEPIME 2 GM in SODIUM CHL 0.9% 50 ML IV SCH (10:03)
[2021-06-08] MEDS: PANTOPRAZOLE 40 MG/10 ML VIAL INJ IV SCH ×2 (10:03→22:00)
[2021-06-08] MEDS: ASPirin 81 mg TAB PO SCH (10:04)
[2021-06-08] MEDS: CHOLECALCIFEROL (VITD3) 2,000 UNIT CAP/TAB PO SCH (10:04)
[2021-06-08] MEDS: LABETALOL HCL 200 MG TAB PO SCH ×2 (10:04→22:00)
[2021-06-08] MEDS: THIAMINE HCL 100 MG TAB PO SCH (10:04)
[2021-06-08] MEDS: FOLIC ACID 1 MG, MULTIPLE VITAMIN 10 ML, MAGNESIUM SULF SDV 50% 8 MEQ, THIAMINE INJ 100... INJ SCH ×5 (12:30)
[2021-06-08 13:00] VITALS: BP 148/95
[2021-06-08 17:00] VITALS: BP 150/86
[2021-06-08 22:00] VITALS: BP 164/88
[2021-06-08] MEDS: ZOLPIDEM TARTRATE 5 MG TAB PO PRN (22:02)
[2021-06-08] MEDS: LOPERAMIDE HCL 2 MG CAP PO PRN (22:02)
[2021-06-09] MEDS: LORazepam 2MG/ML-1ML VIAL IV PRN ×3 (02:50→20:52)
[2021-06-09 04:01] VITALS: BP 134/87
[2021-06-09 05:00] VITALS: BP 152/99
[2021-06-09] MEDS: HYDROmorphone HCL 2 MG/ML VL IV PRN ×2 (05:50→13:09)
[2021-06-09] MEDS: ACCU-CHEK COMFORT CURVE STRIP VI SCH ×4 (05:57→17:45)
[2021-06-09] MEDS: metroNIDAZOLE 500MG/100ML 100 ML IV SCH ×3 (05:57→22:06)
[2021-06-09] MEDS: InsuLIN REG 1unit/0.01ml Soln (100units/ml) SC SCH ×4 (05:58→17:45)
[2021-06-09] MEDS: SEVELAMER 800 MG TAB PO SCH ×3 (07:53→17:45)
[2021-06-09] MEDS: FERROUS SULFATE 325mg EC TAB PO SCH ×3 (07:54→17:44)
[2021-06-09] MEDS: CALCIUM W/VIT D (600MG/400IU) TAB PO SCH ×2 (07:54→17:45)
[2021-06-09] MEDS: PANTOPRAZOLE 40 MG/10 ML VIAL INJ IV SCH ×2 (08:03→22:05)
[2021-06-09] MEDS: CHOLECALCIFEROL (VITD3) 2,000 UNIT CAP/TAB PO SCH (08:03)
[2021-06-09] MEDS: LABETALOL HCL 200 MG TAB PO SCH ×2 (08:03→22:05)
[2021-06-09] MEDS: ASPirin 81 mg TAB PO SCH (08:03)
[2021-06-09] MEDS: THIAMINE HCL 100 MG TAB PO SCH (08:04)
[2021-06-09] MEDS: CEFEPIME 2 GM in SODIUM CHL 0.9% 50 ML IV SCH (08:50)
[2021-06-09 09:00] VITALS: BP 170/93
[2021-06-09] MEDS: SODIUM CHLORIDE 0.9% 1,000 ML IV SCH ×2 (10:30→23:55)
[2021-06-09] MEDS: FOLIC ACID 1 MG, MULTIPLE VITAMIN 10 ML, MAGNESIUM SULF SDV 50% 8 MEQ, THIAMINE INJ 100... INJ SCH ×5 (11:33)
[2021-06-09 13:00] VITALS: BP 159/87
[2021-06-09 17:36] VITALS: BP 149/83
[2021-06-09 22:00] VITALS: BP 162/97
[2021-06-09] MEDS: ZOLPIDEM TARTRATE 5 MG TAB PO PRN (22:06)
[2021-06-10] MEDS: HYDROmorphone HCL 2 MG/ML VL IV PRN ×4 (00:33→19:16)
[2021-06-10] MEDS: ACCU-CHEK COMFORT CURVE STRIP VI SCH ×5 (01:26→23:29)
[2021-06-10 05:00] VITALS: BP 161/83
[2021-06-10] MEDS: metroNIDAZOLE 500MG/100ML 100 ML IV SCH ×3 (05:36→22:32)
[2021-06-10] MEDS: InsuLIN REG 1unit/0.01ml Soln (100units/ml) SC SCH ×5 (06:00→23:29)
[2021-06-10 06:49] LABS: Basophils # (auto) 0.1 10 ^3/uL (0-0.2); Eosinophils # (auto) 0.7 10 ^3/uL (0-0.8); Monocytes # (auto) 1.2 10 ^3/uL (0-1.3)
[2021-06-10 06:53] LABS: Basophils % (auto) 1.3 % (0.0-2.0); Hematocrit 30.9 % (41.0-53.0); Hemoglobin 9.9 g/dL (13.5-17.5); Lymphocytes % (auto) 8.6 % (10.0-50.0); Mean Corpuscular Hemoglobin 24.6 pg (28.0-32.0); Mean Corpuscular Hgb Conc. 32.1 g/dL (32.0-36.0); Mean Corpuscular Volume 76.7 fL (80.0-100.0); Monocytes % (auto) 10.4 % (0.0-12.0); Neutrophils # (auto) 8.5 10 ^3/uL (1.6-8.6); Neutrophils % (auto) 73.7 % (37.0-80.0); Red Blood Cells 4.04 10^6/uL (4.5-5.90); Red Cell Distribution Width 17.1 % (11.8-14.3); White Blood Cell 11.5 10^3/uL (4.4-10.8)
[2021-06-10 07:13] LABS: Albumin 2.4 g/dL (3.4-5.0); Calcium 8.2 mg/dL (8.5-10.1)
[2021-06-10 07:16] LABS: BUN/Creatinine Ratio 10.2
[2021-06-10 07:19] LABS: Bilirubin, Total 0.5 mg/dL (0.2-1.0); Total Protein 5.4 g/dL (6.4-8.2)
[2021-06-10] MEDS: PANTOPRAZOLE 40 MG/10 ML VIAL INJ IV SCH ×2 (08:04→22:31)
[2021-06-10] MEDS: CEFEPIME 2 GM in SODIUM CHL 0.9% 50 ML IV SCH (08:04)
[2021-06-10] MEDS: FERROUS SULFATE 325mg EC TAB PO SCH ×3 (08:04→17:43)
[2021-06-10] MEDS: CALCIUM W/VIT D (600MG/400IU) TAB PO SCH ×2 (08:05→17:43)
[2021-06-10] MEDS: ASPirin 81 mg TAB PO SCH (08:07)
[2021-06-10] MEDS: LABETALOL HCL 200 MG TAB PO SCH ×2 (08:07→22:32)
[2021-06-10] MEDS: CHOLECALCIFEROL (VITD3) 2,000 UNIT CAP/TAB PO SCH (08:08)
[2021-06-10] MEDS: SEVELAMER 800 MG TAB PO SCH ×3 (08:08→17:44)
[2021-06-10] MEDS: THIAMINE HCL 100 MG TAB PO SCH (08:08)
[2021-06-10 09:00] VITALS: BP 161/89
[2021-06-10] MEDS ORDERED: LOPERAMIDE 1 mg/7.5ml ORAL soln PO PRN (10:15)
[2021-06-10] MEDS ORDERED: LOPERAMIDE 1 mg/7.5ml ORAL soln PO ONE (10:15)
[2021-06-10] MEDS: LORazepam 2MG/ML-1ML VIAL IV PRN ×2 (10:49→17:52)
[2021-06-10 13:00] VITALS: BP 154/91
[2021-06-10] MEDS: FOLIC ACID 1 MG, MULTIPLE VITAMIN 10 ML, MAGNESIUM SULF SDV 50% 8 MEQ, THIAMINE INJ 100... INJ SCH ×5 (13:10)
[2021-06-10] MEDS: LEXAPRO 10 MG PO SCH (16:27)
[2021-06-10 16:59] VITALS: BP 158/94
[2021-06-10 22:00] VITALS: BP 153/99
[2021-06-10] MEDS: ZOLPIDEM TARTRATE 5 MG TAB PO PRN (22:57)
[2021-06-11] MEDS: HYDROmorphone HCL 2 MG/ML VL IV PRN ×2 (02:24→08:31)
[2021-06-11] MEDS: metroNIDAZOLE 500MG/100ML 100 ML IV SCH (04:53)
[2021-06-11 05:00] VITALS: BP 173/104
[2021-06-11] MEDS: ACCU-CHEK COMFORT CURVE STRIP VI SCH ×2 (05:04→12:00)
[2021-06-11] MEDS: InsuLIN REG 1unit/0.01ml Soln (100units/ml) SC SCH ×2 (05:04→12:00)
[2021-06-11] MEDS: SEVELAMER 800 MG TAB PO SCH ×2 (05:23→12:00)
[2021-06-11] MEDS: CALCIUM W/VIT D (600MG/400IU) TAB PO SCH (05:23)
[2021-06-11] MEDS: FERROUS SULFATE 325mg EC TAB PO SCH ×2 (05:23→12:00)
[2021-06-11] MEDS: LABETALOL HCL 200 MG TAB PO SCH (05:24)
[2021-06-11] MEDS: LORazepam 2MG/ML-1ML VIAL IV PRN (05:55)
[2021-06-11] MEDS: ASPirin 81 mg TAB PO SCH (08:29)
[2021-06-11] MEDS: PANTOPRAZOLE 40 MG/10 ML VIAL INJ IV SCH (08:29)
[2021-06-11] MEDS: CEFEPIME 2 GM in SODIUM CHL 0.9% 50 ML IV SCH (08:30)
[2021-06-11] MEDS: CHOLECALCIFEROL (VITD3) 2,000 UNIT CAP/TAB PO SCH (08:30)
[2021-06-11] MEDS ORDERED: cloNIDine HCL 0.1 MG TAB PO ONE (08:30)
[2021-06-11] MEDS: THIAMINE HCL 100 MG TAB PO SCH (08:30)
[2021-06-11] MEDS: LEXAPRO 10 MG PO SCH (08:30)
[2021-06-11 09:00] VITALS: BP 158/107
[2021-06-11 10:36] VITALS: BP_SYST 162; BP_SYST 172; BP_DIAS 106; BP_DIAS 92
[2021-06-11] MEDS: FOLIC ACID 1 MG, MULTIPLE VITAMIN 10 ML, MAGNESIUM SULF SDV 50% 8 MEQ, THIAMINE INJ 100... INJ SCH ×5 (12:00)
== END 2021-06-11 12:30 | disposition home or self-care (01) | DRG 871 ==
LOC: EDBD 15:00 → ER 15:00 → TELE 18:16 → TELE-CENTR 06-03 10:56
PROVIDERS: ADMIT Hospitalist; ATTEND Family Medicine
PROC: 5A09357 Assistance with Respiratory Ventilation, Less than 24 Consecutive Hours, Continuous Positive Airway Pressure (ICD-10-PCS; principal; 2021-06-06)
PROC: 5A09357 Assistance with Respiratory Ventilation, Less than 24 Consecutive Hours, Continuous Positive Airway Pressure (ICD-10-PCS; 2021-06-07)
DX: A41.9 Sepsis, unspecified organism (principal); I21.4 Non-ST elevation (NSTEMI) myocardial infarction; K72.00 Acute and subacute hepatic failure without coma; N17.0 Acute kidney failure with tubular necrosis; M62.82 Rhabdomyolysis; N18.4 Chronic kidney disease, stage 4 (severe); N39.0 Urinary tract infection, site not specified; D50.9 Iron deficiency anemia, unspecified; E66.9 Obesity, unspecified; E78.00 Pure hypercholesterolemia, unspecified; E78.5 Hyperlipidemia, unspecified; E87.5 Hyperkalemia; E86.0 Dehydration; F32.9 Major depressive disorder, single episode, unspecified; Z20.822 Contact with and (suspected) exposure to COVID-19; I12.9 Hypertensive chronic kidney disease with stage 1 through stage 4 chronic kidney disease, or unspecified chronic kidney disease; D69.6 Thrombocytopenia, unspecified; K75.81 Nonalcoholic steatohepatitis (NASH); F10.10 Alcohol abuse, uncomplicated; R30.0 Dysuria; R35.8 Other polyuria; R53.81 Other malaise; R09.02 Hypoxemia; F55.8 Abuse of other non-psychoactive substances; K21.9 Gastro-esophageal reflux disease without esophagitis; K22.70 Barrett's esophagus without dysplasia; E83.39 Other disorders of phosphorus metabolism; E83.51 Hypocalcemia; Y90.1 Blood alcohol level of 20-39 mg/100 ml; K81.9 Cholecystitis, unspecified; Z82.49 Family history of ischemic heart disease and other diseases of the circulatory system; I25.2 Old myocardial infarction; Z85.048 Personal history of other malignant neoplasm of rectum, rectosigmoid junction, and anus; Z87.442 Personal history of urinary calculi; Z68.39 Body mass index [BMI] 39.0-39.9, adult
CPT/HCPCS: 36415; 36600; 70450; 71045; 74177; 76705; 76775; 78226; 78582; 80048; 80053; 80074; 80307; 80329; 81001; 82140; 82550; 82553; 82570; 82728; 82805; 82962; 83036; 83605; 83690; 83735; 83874; 83880; 83930; 83935; 84100; 84132; 84133; 84146; 84154; 84156; 84300; 84402; 84403; 84439; 84443; 84481; 84484; 85025; 85379; 85610; 85730; 86141; 86703; 86704; 86706; 86708; 86803; 86850; 86900; 86901; 87040; 87086; 87340; 87426; 93005; 93306; 93970; 94660; 96361; 96365; 96375; 97163; 99291; C9113; G0378; J0696; J1815; J2405; J3490; J7060